=== PATIENT | male | born 1975 | race Caucasian/White ===

== ENCOUNTER 2016-09-27 00:55 | Emergency (ER) | payer OTHER ==
[~2016-09-27] VITALS: Ht 182.9 cm; Wt 139.0 kg
[2016-09-27 00:59] VITALS: Ht 182.9 cm; Wt 139.0 kg
--- NOTE | 2016-09-27 02:09 | ERA ---
ER Documentation Chief Complaint Date/Time DATE: 09/27/16 TIME: 02:06 Chief Complaint requesting change of left foot cast HPI Obese otherwise healthy 41-year-old male presenting with a chief complaint of getting cast wet. Patient was diagnosed with possible Achilles tendon rupture and has appointment with orthopedics on Thursday. Patient says that he got his cast wet 2 days ago and now it smells and he wants it taken off. Patient has no other complaints and denies any pain discharge or medical conditions. ROS All systems reviewed and are negative except as per history of present illness. Allergies Allergies: Coded Allergies: No Known Allergy (Unverified , 09/27/16) PMhx/Soc Medical and Surgical Hx: pt denies Medical Hx, pt denies Surgical Hx Hx Alcohol Use: No Hx Substance Use: No Hx Tobacco Use: No Smoking Status: Never smoker Physical Exam Vitals Vital Signs Date Time Temp Pulse Resp B/P Pulse Ox O2 Delivery O2 Flow Rate FiO2 09/27/16 00:59 97.8 94 20 140/90 98 Physical Exam Const: Morbidly obese 21-year-old male Head: Atraumatic Eyes: Normal Conjunctiva ENT: Normal External Ears, Nose and Mouth. Neck: Full range of motion..~ No meningismus. Resp: Clear to auscultation bilaterally Cardio: Regular rate and rhythm, no murmurs Abd: Soft, non tender, non distended. Normal bowel sounds Skin: Skin intact and color within normal range. No signs of infection. No signs of potential neurovascular compromise. No pain. No petechiae or rashes Back: No midline or flank tenderness Ext: Cast on left extremity. Neurovascularly intact bilaterally. No cyanosis, or edema Neur: Awake and alert Psych: Normal Mood and Affect Procedures/MDM Patient was worked up and evaluated for what cast. At this time a very little suspicion for fungal infection, bacterial skin infection, compartment syndrome, neurovascular compromise, or bacteremia. Patient's current status is appropriate for discharge and vital signs are stable. Patient will be discharged with instructions to make sure to follow-up with orthopedics on Thursday for possible cast removal. I did explain to him at this time we cannot remove the cast due to potentially exacerbating his injury, and that this management will be dealt with by the orthopedic doctor. Departure Diagnosis: Primary Impression: Injury of foot Qualified Code: S99.922S - Injury of foot, left, sequela Condition: Stable Patient Instructions: Sprain Foot Additional Instructions: Make sure to follow-up with rehab specialist. If symptoms worsen or change return to the emergency department immediately. SUHA CARTER PA-C September 27, 2016 02:09
== END 2016-09-27 02:16 | disposition home or self-care (01) ==
LOC: FTE 00:55
DX: S99.922S Unspecified injury of left foot, sequela (principal); X58.XXXD Exposure to other specified factors, subsequent encounter
CPT/HCPCS: 99282